=== PATIENT | male | born 1990 | race Caucasian/White ===

== ENCOUNTER 2022-03-16 10:26 | Emergency (ER) | payer OTHER ==
[~2022-03-16] VITALS: Ht 182.9 cm; Wt 90.7 kg
== END 2022-03-16 15:18 | disposition other institution (70) ==
LOC: ER1 10:26
DX: S52.572A Other intraarticular fracture of lower end of left radius, initial encounter for closed fracture (principal); S52.612A Displaced fracture of left ulna styloid process, initial encounter for closed fracture; S32.019A Unspecified fracture of first lumbar vertebra, initial encounter for closed fracture; F17.210 Nicotine dependence, cigarettes, uncomplicated; W11.XXXA Fall on and from ladder, initial encounter; Y92.89 Other specified places as the place of occurrence of the external cause; Y99.0 Civilian activity done for income or pay
CPT/HCPCS: 29125; 72125; 72128; 72131; 73090; 73110; 99284; J1170; J2270

== ENCOUNTER → 2022-03-25 | Outpatient (CLI) | payer OTHER | LOC: KOH-I 16:00 | DX: S32.019A Unspecified fracture of first lumbar vertebra, initial encounter for closed fracture (principal); S52.502A Unspecified fracture of the lower end of left radius, initial encounter for closed fracture; S52.612A Displaced fracture of left ulna styloid process, initial encounter for closed fracture | CPT/HCPCS: 73200 ==

== ENCOUNTER → 2022-04-01 | Outpatient (CLI) | payer OTHER ==
[~2022-04-01] MED LIST: IBUPROFEN800 MG PO; ROXICODONE5 MG PO
== END ==
LOC: MRI 03-29 11:15 → EMI 03-31 16:45
DX: S32.011A Stable burst fracture of first lumbar vertebra, initial encounter for closed fracture (principal)
CPT/HCPCS: 72146; 72148